=== PATIENT | female | born 1970 | race Caucasian/White ===

== ENCOUNTER → 2021-08-24 | Day surgery (SDC) | payer OTHER ==
[2021-08-20 10:17] LABS: BASOPHILS % 0.4 % (0.0-1.0); EOSINOPHILS # (AUTO) 0.1 (0.0-0.4); EOSINOPHILS % 1.7 % (0.0-6.0); LYMPHOCYTES # (AUTO) 1.7 (1.0-3.2); MEAN CORPUSCULAR HEMOGLOBIN 31.7 pg (28-32); MEAN CORPUSCULAR HGB CONC 32.4 g/dL (31-35); MEAN CORPUSCULAR VOLUME 97.6 fL (81-99); MONOCYTES # (AUTO) 0.7 (0.2-0.8); MONOCYTES % 9.6 % (4.4-11.3); NEUTROPHILS # (AUTO) 4.5 (2.1-6.9); PLATELET COUNT 413 x10e3/uL (140-360); RED BLOOD COUNT 3.79 x10e6/uL (3.6-5.1)
[2021-08-20 10:37] LABS: ALBUMIN 3.8 g/dL (3.5-5.0); ANION GAP 12.2 mmol/L (8-16); CALCIUM 8.9 mg/dL (8.4-10.2); CREATININE, SERUM 0.79 mg/dL (0.57-1.11); POTASSIUM 4.2 mmol/L (3.5-5.1)
[~2021-08-24] VITALS: Ht 165.1 cm; Wt 72.1 kg
[~2021-08-24] MED LIST: ALPRAZOLAM 0.5 MG TAB ONE; CBD OIL PO; DIPHENHYDRAMINE HCL 25 MG CAP ONE; DUEXIS 800-26.1 EACH PO; FENTANYL CITRATE/PF 100MCG/2 ML INJ ONE; HEPARIN SOD/SOD CHLORIDE 2,000 ML ONE; IOPAMIDOL 370 MG/ML 200 ML INFUS..BTL INJ ONE; LIDOCAINE HCL 2% LOCAL 20 ML VIAL ONE; MIDAZOLAM HCL 2 MG/2 ML VIAL ONE; SODIUM CHLORIDE 0.9% 1000ML 1,000 ML ONE; VERAPAMIL HCL 2.5 MG/ML 2 ML VIAL ONE; WELLBUTRIN SR150 MG PO; XANAX0.25 MG PO; [UNRECOGNIZED DRUG - OTHER] PO
[2021-08-24 13:43] VITALS: BP 126/65
[2021-08-24 17:00] VITALS: BP 122/97
[2021-08-24 17:06] VITALS: BP 114/62
== END | disposition home or self-care (01) ==
LOC: CATH LAB 13:18
PROVIDERS: ATTEND Internal Medicine Interventional Cardiology
DX: I25.118 Atherosclerotic heart disease of native coronary artery with other forms of angina pectoris (principal); R94.39 Abnormal result of other cardiovascular function study; K21.9 Gastro-esophageal reflux disease without esophagitis; F41.9 Anxiety disorder, unspecified; Z01.812 Encounter for preprocedural laboratory examination; Z20.822 Contact with and (suspected) exposure to COVID-19; Z86.16 Personal history of COVID-19; Z82.49 Family history of ischemic heart disease and other diseases of the circulatory system; Z82.3 Family history of stroke
CPT/HCPCS: 36415; 76937; 80053; 81025; 83880; 85025; 93458; C1887; J2001; J2250; J3010; J7030; Q9967; U0002; 93454; 99152